=== PATIENT | male | born 1960 | race Caucasian/White ===

== ENCOUNTER → 2017-02-18 | Outpatient (CLI) | payer OTHER ==
--- NOTE | ~2017-02-18 | CT57 ---
[facility] A Service of [facility] & [facility] RADIOLOGY TEXT RESULTS PATIENT: MCKAYLA BOTELLO LOCATION: [facility] : 64 UNIT #: [id number] AGE: [address]: Mary Lala APRN SEX: M ORDER DR: [id number] [address] [address] [id number] O MR#: [id number] Acc #: [id number] NAME: MCKAYLA BOTELLO : 1960 SEX: M STUDY DATE/TIME: 02/18/2017 09:19 UNIT: [facility] ROOM: STUDY DESCRIPTION: CT Chest Wo Cont Attending Physician: Mary Lala A.P.R.N. Referring Physician: Mary Lala A.P.R.N. Ordering Physician: Mary Lala A.P.R.N. Primary Care Physician: Mary Lala A.P.R.N. MEDICAL IMAGING REPORT This report is preliminary unless electronic signature is present. EXAM CT chest without contrast, 02/18/2017, 0919 hours. CLINICAL HISTORY Cough and shortness of air for 9 months. Intermittent smoker for years. COMPARISON Chest x-ray, 01/29/2017. TECHNIQUE Helical noncontrasted images were obtained from the thoracic inlet through the adrenal glands. Sagittal and coronal reconstructions were performed. Total exam DLP 774 mGy-cm. This CT exam was performed with one or more of the following radiation dose reduction techniques: automatic exposure control, adjustment of mA and/or kV according to patient size, and iterative reconstruction. FINDINGS Images through the thoracic inlet demonstrate no thyroid mass or supraclavicular adenopathy. Images through the chest demonstrate very minimal ectasia of the ascending aorta measuring 3.4 cm. Pulmonary arteries, cardiac chambers and pericardium appear normal. There is a very small hiatal hernia. There is no pathologic mediastinal, hilar or axillary adenopathy. Lung window images demonstrate no acute pulmonary densities or nodules. There is no bronchiectasis or airspace change. There is no effusion. No definite emphysematous changes are seen. Limited views through the upper abdomen demonstrate a cyst in the lateral segment left lobe of the liver posteriorly measuring only 1.3 cm. There is a gallstone in the gallbladder without evidence of gallbladder wall [facility] A Service of [facility] & [facility] RADIOLOGY TEXT RESULTS PATIENT: MCKAYLA BOTELLO LOCATION: [facility] : 64 UNIT #: [id number] AGE: [address]: Mary Lala APRN SEX: M ORDER DR: thickening. The adrenal glands are normal. IMPRESSION 1. Negative noncontrast chest CT. 2. Cholelithiasis without evidence of cholecystitis. Dictated by... Linnette Cabrera M.D. THIS IS AN ELECTRONICALLY VERIFIED REPORT Linnette Cabrera M.D. at 02/18/2017 2:28 PM LINDA/shimon TD: 02/18/2017 13:06 JOB #: [id number] MEDICAL IMAGING REPORT Page 1 of 1
== END | disposition home or self-care (01) ==
LOC: SCT 02-14 08:40
DX: R06.02 Shortness of breath (principal); R05 Cough; K80.20 Calculus of gallbladder without cholecystitis without obstruction
CPT/HCPCS: 71250